=== PATIENT | female | born 1965 | race American Indian/Alaskan Native ===

== ENCOUNTER 2021-03-16 11:34 | Outpatient (CLI) | payer MEDICARE ==
--- NOTE | 2021-03-16 17:18 | XRay Report ---
PELVIS 3 VIEW(S) INDICATION / CLINICAL INFORMATION: PAIN IN UNSPECIFIED HIP,PELVIC AND PERINEAL PAIN COMPARISON: None available. FINDINGS: BONES / JOINT(S): No acute fracture or subluxation. Severe/end-stage osteoarthrosis of the bilateral hip joints with [id number] appearance and cortical remodeling of the left greater than right femora l heads and acetabulum. SOFT TISSUES: No significant abnormality. ADDITIONAL FINDINGS: None. Signer Name: Homar Ivan MD Signed: 03/16/2021 5:14 PM Workstation Name: [id number]
== END 2021-03-16 11:35 | disposition home or self-care (01) ==
LOC: XRAY 11:34
PROVIDERS: ATTEND Orthopaedic Surgery
DX: R10.2 Pelvic and perineal pain (principal); M16.0 Bilateral primary osteoarthritis of hip
CPT/HCPCS: 72190

== ENCOUNTER 2021-04-26 15:49 | Outpatient (CLI) | payer MEDICARE ==
[2021-04-26 16:52] LABS: % Iron Saturation 28.26 %; Alanine Aminotransferase 41 units/L (7-56); Albumin 4.4 g/dL (3.9-5); BUN/Creatinine Ratio 23; Blood Urea Nitrogen 25 mg/dL (7-17); Calcium 10.4 mg/dL (8.4-10.2); Chol/HDL Ratio 5.52 %; HDL Cholesterol 46 mg/dL (40-59); Hemolysis Index 1; Iron 65 ug/dL (37-170); LDL Cholesterol,Direct 181 mg/dL (50-130); Total Iron Binding Capacity 230 mcg/dL (250-450)
[2021-04-30 12:34] LABS: Vitamin D, 25-OH, D2 <4 ng/mL
== END 2021-04-26 15:50 | disposition home or self-care (01) ==
LOC: LAB 15:49
PROVIDERS: ATTEND Surgery
DX: Z01.812 Encounter for preprocedural laboratory examination (principal); Z13.1 Encounter for screening for diabetes mellitus; E55.9 Vitamin D deficiency, unspecified; K30 Functional dyspepsia; E66.01 Morbid (severe) obesity due to excess calories
CPT/HCPCS: 36415; 80053; 80061; 82306; 82607; 82728; 83036; 83550; 84443; 85730

== ENCOUNTER 2021-05-04 11:32 | Outpatient (CLI) | payer MEDICARE ==
--- NOTE | 2021-05-04 13:40 | Fluoroscopy Report ---
BARIUM SWALLOW Indication: Z66.01 / morbid obesity. Technique: Single and double contrast barium technique utilized to evaluate the esophagus. FINDINGS: To begin the exam, swallowing was evaluated in the lateral position under direct fluorosco py. Swallowing was normal. No mucosal irregularity, mass, mass effect, or critical stenosis. There were no abnormal tertiary c ontractions as seen with dysmotility. No gastroesophageal reflux. IMPRESSION: Unremarkable exam. Fluoroscopic time: 0.7 minutes Number of fluoroscopic images: 33 Signer Name: Steffen Mckinnon Jr, MD Signed: 05/04/2021 1:35 PM Workstation Name: [id number]
== END 2021-05-04 11:33 | disposition home or self-care (01) ==
LOC: FLUORO 11:32
PROVIDERS: ATTEND Surgery
DX: E66.1 Drug-induced obesity (principal); E66.2 Morbid (severe) obesity with alveolar hypoventilation
CPT/HCPCS: 74220

== ENCOUNTER 2021-05-11 06:14 | Inpatient (IN) | payer MEDICARE ==
[2021-05-08 10:35] LABS: Hematocrit 32.9 % (30.3-42.9); Hemoglobin 10.4 gm/dl (10.1-14.3); Mean Corpuscular HGB Conc 32 % (30-34); Mean Corpuscular Volume 94 fl (79-97); Platelet Count 421 K/mm3 (140-440); Red Blood Count 3.49 M/mm3 (3.65-5.03); Red Cell Distribution Width 13.6 % (13.2-15.2)
[2021-05-08 10:54] LABS: BUN/Creatinine Ratio 21; Blood Urea Nitrogen 21 mg/dL (7-17); Calcium 9.4 mg/dL (8.4-10.2); Hemolysis Index 5
--- NOTE | 2021-05-08 13:22 | Anesthesia Consultation ---
Anesthesia Consult and Med Hx Date of service: 05/11/21 - Airway Anesthetic Teeth Evaluation: Bridges (Broken tooth), Partials ROM Head & Neck: Adequate Mental/Hyoid Distance: Adequate Mallampati Class: Class III Intubation Access Assessment: Probably Good - Pre-Operative Health Status ASA Pre-Surgery Classification: ASA3 Proposed Anesthetic Plan: General - Pulmonary Hx Smoking: No Hx Sleep Apnea: No (FEDERICO PRE SCREEN HIGH RISK) - Cardiovascular System Hx Hypertension: Yes (X 10 YRS) - Central Nervous System Hx Back Pain: Yes (WITH RIGHT LEG/FOOT PAIN, WEAKNESS NUMBNESS) Hx Psychiatric Problems: No - Gastrointestinal Hx Gastroesophageal Reflux Disease: Yes (Dietary/occasional) - Hematic Hx Anemia: Yes (ON IRON TID) - Other Systems Hx Cancer: No - Additional Comments Anesthesia Medical History Comments: Had lumbar fusion and now has LLE weakness/pain-on gabapentin
[~2021-05-11 06:14] MED LIST: ACETAMINOPHEN 500 MG TAB PO ONE; BUPIVACAINE/PF (0.5%) 5 MG/1 ML 30 ML VIAL INFILTRATI ONE; CELECOXIB 200 MG CAP PO NR; KETOROLAC 30 MG/1 ML INJ IV ONE; MAGNESIUM OXIDE 400 MG TAB PO ONE; MORPHINE 10 MG/1 ML INJ IM ONE; SODIUM CHLORIDE 0.9% 100 ML IVPB IV ONE; SODIUM CHLORIDE 0.9% 50 ML IVPB IV ONE; SODIUM CHLORIDE 0.9% IRR 1,500 ML BOTTLE IR ONE; TRANEXAMIC ACID 1,000 MG/10 ML IV ONE
[2021-05-11] MEDS: LACTATED RINGERS 1,000 ML IV SCH (06:36)
[2021-05-11] MEDS ORDERED: HYDROmorphone 1 MG/1 ML INJ ONE (07:10)
[2021-05-11] MEDS ORDERED: propofoL 200 MG/20 ML VIAL IV ONE (07:11)
--- NOTE | 2021-05-11 07:29 | Anesthesia Day of Surgery ---
Anesthesia Day of Surgery - Day of Surgery Patient Examined: Yes Patient H&P Reviewed: Yes Patient is NPO: Yes Beta Blockers: No Lul's Test: N/A
[2021-05-11] MEDS ORDERED: ceFAZolin/Water 2 GM/20 ML 2 GM/20 ML SYRINGE IV SCH (07:30)
[2021-05-11] MEDS ORDERED: KETOROLAC 30 MG/1 ML INJ ONE (07:45)
[2021-05-11] MEDS ORDERED: BUPIVACAINE/PF (0.5%) 5 MG/1 ML 30 ML VIAL INFILTRATI ONE ×2 (07:45→10:21)
[2021-05-11] MEDS ORDERED: TRANEXAMIC ACID 1,000 MG/10 ML ONE (07:46)
[2021-05-11] MEDS ORDERED: SODIUM CHLORIDE 0.9% 100 ML ONE (07:46)
[2021-05-11] MEDS ORDERED: SODIUM CHLORIDE 0.9% 50 ML ONE (07:46)
[2021-05-11] MEDS ORDERED: ceFAZolin/Water 2 GM/20 ML 2 GM/20 ML SYRINGE IV ONE (07:53)
[2021-05-11] MEDS ORDERED: fentaNYL 100 MCG/2 ML INJ ONE (07:54)
[2021-05-11] MEDS ORDERED: HYDROmorphone 1 MG/1 ML INJ IV PRN ×2 (07:59)
[2021-05-11] MEDS ORDERED: ONDANSETRON 4 MG/2 ML INJ IV PRN ×2 (07:59→10:29)
[2021-05-11] MEDS ORDERED: CITRIC ACID-SOD CITRATE 500 ML IV ONE (08:05)
[2021-05-11] MEDS ORDERED: TRANEXAMIC ACID 1,000 MG/10 ML IV ONE (08:25)
[2021-05-11] MEDS ORDERED: SODIUM CHLORIDE 0.9% IRRIG SOLN 2000 ML IR ONE (08:53)
[2021-05-11] MEDS ORDERED: CITRIC ACID-SOD CITRATE SOLN 500 ML IV SOLN IV ONE (08:53)
[2021-05-11] MEDS ORDERED: MORPHINE 10 MG/1 ML INJ ONE (09:49)
[2021-05-11] MEDS ORDERED: SUGAMMADEX SODIUM 200 MG/2 ML VIAL IV ONE (10:09)
[2021-05-11] MEDS ORDERED: KETOROLAC 30 MG/1 ML INJ IV ONE ×2 (10:21→13:10)
[2021-05-11] MEDS ORDERED: SODIUM CHLORIDE 0.9% 100 ML IVPB IV ONE (10:21)
[2021-05-11] MEDS ORDERED: SODIUM CHLORIDE 0.9% 50 ML IVPB IV ONE (10:21)
[2021-05-11] MEDS ORDERED: MORPHINE 10 MG/1 ML INJ IM ONE (10:21)
[2021-05-11] MEDS ORDERED: SODIUM CHLORIDE 0.9% IRR 1,500 ML BOTTLE IR ONE (10:25)
[2021-05-11] MEDS ORDERED: PHENYLEPHRINE 10 MG/1 ML INJ SDV ONE (10:32)
[2021-05-11] MEDS ORDERED: ONDANSETRON 4 MG/2 ML INJ ONE (10:32)
[2021-05-11] MEDS ORDERED: dexAMETHasone 20 MG/5 ML VIAL ONE (10:32)
[2021-05-11] MEDS ORDERED: LIDOCAINE MPF (2%) 20 MG/1 ML VIAL 5 ML ONE (10:32)
--- NOTE | 2021-05-11 10:40 | Procedure Note ---
Date of procedure: 05/11/21 Pre-op diagnosis: Severe arthritis left hip Post-op diagnosis: same Procedure: Left total hip replacement Procedure The patient was brought to the OR and placed in the OR table in the supine position following induction intubation by anesthesia the patient's was turned into the right lateral decubitus position care was taken to protect the bony areas and a axillary roll was used and the left axilla. Left hip and thigh were then prepped and draped in the usual sterile manner. A timeout procedure was done to identify the patient and the correct operative site. Using the lateral approach incision was taken down through skin and subcutaneous the fascia cameron was incised. A Charnley retractor was placed deep within the wound care was taken to enter the anterior hip capsule by the vastus lateralis and the gluteus medius tendons in the knee was flexed and internally rotated which brought us upon the anterior portion of the hip joint using a small broach and osteotomy was performed on the femoral neck approximately 2 cm to centimeters proximal to the lesser trochanter. Using Rodríguez retractors the the acetabular structures were evaluated the patient was noted to have some moderate changes within the acetabulum reaming was begun starting with a 44 mm diameter and advancing up to a 50 mm cup was taken to the observed bleeding bone within the acetabulum nicely 50 mm cup was inserted care was taken to maintain the proper version that being 45 abduction and 20 of anteversion and a small screw was used to stabilize this acetabular component next a dual mobility cup placed and secured, following this attention was turned to the proximal femur using a cookie cutter and the proximal femoral canal was entered this was then reamed and broached to a #3 stem And the hip joint was then reduced using a 30 neutral neck and a 32 mm head hip was reduced taken through a range of motion and was found to be stable Trial component was removed and the hip joint was then copiously irrigated the final components were inserted that being a #3 femoral stem with a 32 mm head again the hip joint was reduced and was taken through a range of motion and found stable. He was closed in a standard routine fashion. Dressings were applied the patient tolerated the procedure and there were no complications he was taken to postanesthesia recovery stable Anesthesia: GETA Surgeon: AYDIN TRIVEDI (Chidi Bonilla, 1st assist) Estimated blood loss: other (250 cc blood loss with a return of 125 cc Cell Saver) Pathology: list (Left femoral head and neck sent to pathology) Specimen disposition: to lab Condition: stable Disposition: PACU
--- NOTE | 2021-05-11 14:08 | XRay Report ---
XR hip 2-3V LT INDICATION / CLINICAL INFORMATION: Postop evaluation. COMPARISON: None available. FINDINGS: Post operative changes from left hip arthroplasty. No retained foreign body. Hardware is intact. No a bnormal lucency surrounds hardware. Normal alignment. No acute fracture. Impression: 1. Expected postoperative changes. Signer Name: Michel Mari MD Signed: 05/11/2021 2:03 PM Workstation Name: [id number]
[2021-05-11] MEDS: KETOROLAC 30 MG/1 ML INJ IV PRN (17:34)
--- NOTE | 2021-05-11 18:37 | Post Anesthesia Evaluation ---
- Post Anesthesia Evaluation Patient Participated: Yes Airway Patent: Yes Stable Respiratory Function: Yes Nausea/Vomiting: No Temp > 96.8F: Yes Pain Manageable: Yes Adequeate Hydration: Yes Anesthesia Complications: No Block Receding Appropriately: Not Applicable Patient on Ventilator: No
[2021-05-11] MEDS: DOCUSATE SODIUM 100 MG CAP PO SCH (23:48)
[2021-05-11] MEDS: oxyCODONE /ACETAMINOPHEN 5-325MG TAB PO PRN (23:53)
[2021-05-12] MEDS: LACTATED RINGERS 1,000 ML IV SCH ×2 (01:05→09:02)
[2021-05-12] MEDS: ZOLPIDEM 5 MG TAB PO PRN ×2 (01:05→21:48)
[2021-05-12 06:16] LABS: Hematocrit 23.9 % (30.3-42.9); Hemoglobin 7.9 gm/dl (10.1-14.3)
[2021-05-12] MEDS: DOCUSATE SODIUM 100 MG CAP PO SCH ×2 (09:01→21:48)
[2021-05-12] MEDS: oxyCODONE /ACETAMINOPHEN 5-325MG TAB PO PRN ×2 (09:01→21:47)
[2021-05-12] MEDS: ENOXAPARIN 40 MG/0.4 ML INJ SUB-Q SCH (09:01)
[2021-05-12] MEDS: MORPHINE 4 MG/1 ML INJ IV PRN (10:43)
--- NOTE | 2021-05-12 14:01 | Progress Note ---
Assessment and Plan s/p left total hip replacement doing well continue PT and observation Subjective Date of service: 05/12/21 Interval history: c/o incisional pain otherwise ok Objective Vital signs: Vital Signs - 12hr 05/12/21 05/12/21 06:17 08:03 Temperature 98.1 F 97.9 F Pulse Rate 84 94 H Respiratory 20 15 Rate Blood Pressure 107/56 Blood Pressure 107/68 [Right] O2 Sat by Pulse 96 97 Oximetry Incision: healing, clean and dry Weight bearing status: as tolerated - Labs CBC & BMP: 05/12/21 05:58 05/08/21 10:23 Labs: Abnormal lab results 05/12/21 Range/Units 05:58 Hgb 7.9 L (10.1-14.3) gm/dl Hct 23.9 L (30.3-42.9) %
[2021-05-13] MEDS: KETOROLAC 30 MG/1 ML INJ IV PRN (00:21)
[2021-05-13] MEDS: MORPHINE 4 MG/1 ML INJ IV PRN ×2 (01:11→10:04)
[2021-05-13] MEDS: oxyCODONE /ACETAMINOPHEN 5-325MG TAB PO PRN ×2 (04:30→20:49)
[2021-05-13] MEDS: ENOXAPARIN 40 MG/0.4 ML INJ SUB-Q SCH (09:58)
[2021-05-13] MEDS: DOCUSATE SODIUM 100 MG CAP PO SCH ×2 (09:58→21:02)
[2021-05-13] MEDS: diphenhydrAMINE 25 MG CAP PO PRN ×2 (09:58→23:28)
[2021-05-14] MEDS: DOCUSATE SODIUM 100 MG CAP PO SCH ×2 (09:55→22:08)
[2021-05-14] MEDS: ENOXAPARIN 40 MG/0.4 ML INJ SUB-Q SCH (09:55)
[2021-05-15] MEDS: DOCUSATE SODIUM 100 MG CAP PO SCH (09:47)
[2021-05-15] MEDS: ENOXAPARIN 40 MG/0.4 ML INJ SUB-Q SCH (09:47)
--- NOTE | 2021-05-15 11:59 | Discharge Summary ---
Providers - Providers Date of Admission: 05/11/21 06:14 Date of discharge: 05/15/21 Attending physician: AYDIN TRIVEDI MD 05/11/21 10:34 Physical Therapy Evaluation and Treat [CONS] Routine Comment: Reason For Exam: Postop evaluation gait training Weight bearing status?: Full wt bearing Assistive devices?: Yes If so list: Walker Primary care physician: PASSENGER CAR UPHOLSTERER APPRENTICE Hospitalization Condition: Stable Disposition: 06 HOME HEALTH CARE SERVICE Final Discharge Diagnosis (Prints w/discharge instructions): Severe Arthritis left hip Exam - Constitutional Vitals: Temp Pulse Resp BP Pulse Ox 98.4 F 101 H 20 134/82 96 05/15/21 07:44 05/15/21 07:44 05/15/21 10:00 05/15/21 07:44 05/15/21 10:00 Plan Follow up with: VIKTORIA GARCIA MD [Primary Care Provider] - 7 Days Prescriptions: Apixaban [Eliquis] 5 mg PO DAILY #30 tablet Oxycodone HCl/Acetaminophen [Percocet 10/325 mg] 1 each PO Q6HR PRN #30 tablet PRN Reason: Pain
[2021-05-15 13:25] VITALS: BP 126/80
== END 2021-05-15 16:21 | disposition home health service (06) | DRG 470 ==
LOC: 3A 06:14
PROVIDERS: ADMIT Orthopaedic Surgery; ATTEND Orthopaedic Surgery
PROC: 0SRB0JA Replacement of Left Hip Joint with Synthetic Substitute, Uncemented, Open Approach (ICD-10-PCS; principal; 2021-05-11)
PROC: 30233H0 Transfusion of Autologous Whole Blood into Peripheral Vein, Percutaneous Approach (ICD-10-PCS; 2021-05-11)
DX: M16.12 Unilateral primary osteoarthritis, left hip (principal); Z20.822 Contact with and (suspected) exposure to COVID-19; I10 Essential (primary) hypertension; K21.9 Gastro-esophageal reflux disease without esophagitis; Z98.1 Arthrodesis status
CPT/HCPCS: 36415; 80048; 85014; 85018; 85027; 86850; 86900; 86901; 88304; 88311; G0378; J3490; J7120; C1776; J0690; J1100; J1170; J1650; J1885; J2270; J2370; J2405; J2704; J3010; U0003

== ENCOUNTER 2021-08-18 14:30 | Outpatient (CLI) | payer MEDICARE ==
--- NOTE | 2021-08-18 16:50 | XRay Report ---
Pelvis single view INDICATION: Pelvic pain IMPRESSION: Left total hip arthroplasty appears grossly intact. There is prominent heterotopic ossifi cation superior and lateral to the left hip. Advanced degenerative changes of the right hip are noted . Signer Name: Al Chicas MD Signed: 08/18/2021 4:45 PM Workstation Name: [id number]
== END 2021-08-18 14:31 | disposition home or self-care (01) ==
LOC: XRAY 14:30
PROVIDERS: ATTEND Orthopaedic Surgery
DX: M16.11 Unilateral primary osteoarthritis, right hip (principal); Z96.642 Presence of left artificial hip joint
CPT/HCPCS: 72170

== ENCOUNTER 2021-09-05 07:35 | Day surgery (SDC) | payer MEDICARE ==
[~2021-09-05 07:35] MED LIST changes: -ACETAMINOPHEN 500 MG TAB PO ONE; -BUPIVACAINE/PF (0.5%) 5 MG/1 ML 30 ML VIAL INFILTRATI ONE; -CELECOXIB 200 MG CAP PO NR; -KETOROLAC 30 MG/1 ML INJ IV ONE; -MAGNESIUM OXIDE 400 MG TAB PO ONE; -MORPHINE 10 MG/1 ML INJ IM ONE; -SODIUM CHLORIDE 0.9% 100 ML IVPB IV ONE; +SODIUM CHLORIDE 0.9% 1000 ML 1,000 ML IV SCH; -SODIUM CHLORIDE 0.9% 50 ML IVPB IV ONE; -SODIUM CHLORIDE 0.9% IRR 1,500 ML BOTTLE IR ONE; -TRANEXAMIC ACID 1,000 MG/10 ML IV ONE
--- NOTE | 2021-09-05 09:01 | Operative Report ---
Operative Report Operative Report: DATE: 09/05/2021 SURGERY: Upper endoscopy. SURGEON: Jannet Armstrong M.D. PROCEDURE: EGD with biopsy PRE OP DX: morbid obesity, GERD POST OP DX: morbid obesity, GERD TYPE OF ANESTHESIA: MAC. ESTIMATED BLOOD LOSS: None. COMPLICATIONS: None. SPECIMENS REMOVED: antral biopsy FINDINGS: 1. Small hiatal hernia. 2. peptic ulcer disease INDICATIONS:INDICATION FOR PROCEDURE: Patient is a 56-year-old f[place]ale with a long history of morbid obesity. She is planned to have a weight loss procedure and is here for preoperative planning EGD. PROCEDURE DETAILS: After consent was reviewed, patient was taken back to the operating room where patient was placed in the left lateral decubitus position and a bite block was placed in the mouth. After a time-out was called, MAC anesthesia was initiated. I then passed the endoscope into her oropharynx, into her esophagus, visualized the entire esophagus, which was all within normal limits. Z-line was noted to about 34cm from incisors. I then visualized the stomach and the first portion of the duodenum and there were no abnormalities I could clearly visualize with the exception of 3 small less than 1cm shallow clean based ulcerations in the antrum. A cold forceps biopsy of the antrum was taken and will be sent to pathology to evaluate for H.pylori. I then retroflexed the scope in the stomach and visualized the hiatus and I could see a small hiatal hernia. I then desufflated the stomach and removed the endoscope. Patient tolerated procedure well and was transferred to recovery room in good and stable condition.
--- NOTE | 2021-09-05 09:03 | Discharge Summary ---
Providers - Providers Date of Admission: 09/05/2021 Date of discharge: 09/05/21 Attending physician: BONNIE HENDERSON MD Primary care physician: ASSISTANT ATHLETIC TRAINER Hospitalization Reason for admission: pre-op egd Condition: Good Procedures: egd w/ bx Hospital course: Pt presented for a pre-op EGD as part of planning for up coming bariatric surgery. Procedure was uneventful and pt recovered well and was discharged to home. Disposition: 01 HOME / SELF CARE / HOMELESS Final Discharge Diagnosis (Prints w/discharge instructions): morbid obesity, gerd Core Measure Documentation - Palliative Care Palliative Care/ Comfort Measures: Not Applicable - Core Measures Any of the following diagnoses?: none Exam - Physical Exam Narrative exam: unchanged from pre-op Plan Activity: advance as tolerated Diet: low carbohydrate Follow up with: PRIMARY CAREMD [Primary Care Provider] - 7 Days
--- NOTE | 2021-09-05 09:40 | Anesthesia Day of Surgery ---
Anesthesia Day of Surgery - Day of Surgery Patient Examined: Yes Patient H&P Reviewed: Yes Patient is NPO: Yes
--- NOTE | 2021-09-05 09:46 | Anesthesia Consultation ---
Anesthesia Consult and Med Hx Date of service: 09/05/21 - Airway Anesthetic Teeth Evaluation: Chipped, Partials ROM Head & Neck: Adequate Mental/Hyoid Distance: Adequate Mallampati Class: Class III Intubation Access Assessment: Probably Good - Pre-Operative Health Status ASA Pre-Surgery Classification: ASA3 Proposed Anesthetic Plan: MAC - Pulmonary Hx Smoking: No COPD: No Hx Sleep Apnea: No ([facility] PRE SCREEN HIGH RISK) - Cardiovascular System Hx Hypertension: Yes - Central Nervous System Hx Back Pain: Yes (Wheelchair because of hip pain) Hx Psychiatric Problems: No - Gastrointestinal Hx Gastroesophageal Reflux Disease: Yes (Dietary/occasional) - Endocrine Hx End Stage Renal Disease: No - Hematic Hx Anemia: Yes (ON IRON TID) Hx Sickle Cell Disease: No - Other Systems Hx Cancer: No Hx Obesity: Yes - Additional Comments Anesthesia Medical History Comments: Pt states she saw treasury accountant and pulmonol ogist and all clear
[2021-09-05] MEDS ORDERED: propofoL 200 MG/20 ML VIAL IV ONE (10:23)
[2021-09-05] MEDS ORDERED: LIDOCAINE MPF (2%) 20 MG/1 ML VIAL 5 ML ONE (10:23)
[2021-09-05 13:33] VITALS: BP 126/87
== END 2021-09-05 11:30 | disposition home or self-care (01) ==
LOC: GIO 07:35
PROVIDERS: ATTEND Surgery
DX: K21.9 Gastro-esophageal reflux disease without esophagitis (principal); K30 Functional dyspepsia; E66.01 Morbid (severe) obesity due to excess calories; K44.9 Diaphragmatic hernia without obstruction or gangrene; K27.9 Peptic ulcer, site unspecified, unspecified as acute or chronic, without hemorrhage or perforation; K31.89 Other diseases of stomach and duodenum; G62.9 Polyneuropathy, unspecified; G43.909 Migraine, unspecified, not intractable, without status migrainosus; E78.00 Pure hypercholesterolemia, unspecified; I10 Essential (primary) hypertension; M19.90 Unspecified osteoarthritis, unspecified site; D64.9 Anemia, unspecified; Z68.41 Body mass index [BMI] 40.0-44.9, adult; Z79.899 Other long term (current) drug therapy; Z98.891 History of uterine scar from previous surgery
CPT/HCPCS: 43239; 88305; 88342; J2704; J3490; J7120

== ENCOUNTER 2021-12-20 10:32 | Outpatient (CLI) | payer MEDICARE ==
[2021-12-20 11:12] LABS: Basophils # (Auto) 0.1 K/mm3 (0.0-0.1); Eosinophils # (Auto) 0.2 K/mm3 (0.0-0.4); Eosinophils % (Auto) 2.9 % (0.0-4.3); Lymphocytes # (Auto) 1.7 K/mm3 (1.2-5.4); Lymphocytes % (Auto) 23.5 % (13.4-35.0); Mean Corpuscular HGB Conc 32 % (30-34); Mean Corpuscular Volume 95 fl (79-97); Monocytes # (Auto) 0.3 K/mm3 (0.0-0.8); Monocytes % (Auto) 4.3 % (0.0-7.3); Platelet Count 386 K/mm3 (140-440); Red Cell Distribution Width 15.3 % (13.2-15.2)
[2021-12-20 11:32] LABS: % Iron Saturation 26.04 %; Alanine Aminotransferase 12 units/L (7-56); Albumin 4.1 g/dL (3.9-5); BUN/Creatinine Ratio 16; Blood Urea Nitrogen 14 mg/dL (7-17); Chol/HDL Ratio 6.06 %; HDL Cholesterol 45 mg/dL (40-59); Hemolysis Index 0; Iron 50 ug/dL (37-170); LDL Cholesterol,Direct 202 mg/dL (50-130); Total Iron Binding Capacity 192 mcg/dL (250-450)
== END 2021-12-20 10:33 | disposition home or self-care (01) ==
LOC: LAB 10:32
PROVIDERS: ATTEND Surgery
DX: Z13.21 Encounter for screening for nutritional disorder (principal); Z13.29 Encounter for screening for other suspected endocrine disorder; E66.01 Morbid (severe) obesity due to excess calories; K30 Functional dyspepsia; K90.9 Intestinal malabsorption, unspecified; E11.9 Type 2 diabetes mellitus without complications; Z98.84 Bariatric surgery status
CPT/HCPCS: 36415; 80053; 80061; 82306; 82607; 82728; 83036; 83550; 83970; 84425; 84443; 85025